=== PATIENT | male | born 1945 | race Two or more races ===

== ENCOUNTER → 2017-07-23 | Outpatient (CLI) | payer MEDICARE, OTHER ==
[~2017-07-23] MED LIST: BARIUM SULFATE 0.1% 450 ML BTL (VOLUMEN) PO ONE; IOHEXOL 100 ML ONE; IOHEXOL 350MG/ML 50 ML BTL ONE; SOD CHLORIDE 0.9% 100 ML ONE
[2017-07-23 09:44] LABS: CREATININE 0.73 mg/dl (0.61-1.24)
--- NOTE | 2017-07-24 11:14 | RADRPT ---
PROCEDURE: CT Abdomen and Pelvis. CLINICAL INDICATION: Pancreatic cyst. TECHNIQUE: Multiple contiguous axial CT images of the abdomen and pelvis were obtained prior to an d following the intravenous administration of 100 cc of Omnipaque 350. Contrast enhanced images were obtained during the arterial and venous phases. Coronal and sagittal reconstructions were also per formed. DICOM images are available. CTDIvol (mGy): 9.22, 12.62, 11.40; Total Exam DLP (mGy-cm): 1 198.71. One or more of the following dose reduction techniques were utilized: - Automated exposure control. - Adjustment of the mA and/or kV according to patient size. - Use of iterative reconstruction technique. COMPARISON: CT 06/04/2016; CT 12/20/2015; CT OUTSIDE STUDY 07/28/2015. FINDINGS: Limited imaging of the lower thorax is unremarkable. The liver is diffusely low in attenuation compatible with fatty infiltration. The density of the candido er is approximately 40 HU. There are two small hemangiomas within the right hepatic lobe, which are unchanged. The hepatic and portal veins are patent. The spleen, gallbladder and adrenal glands are u nremarkable. There is a small 2.4 cm cystic lesion within the uncinate process of the pancreas with internal dystrophic calcification, which is grossly unchanged in size previously measuring 2.2 cm. 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 The remainder o f the pancreas is unremarkable. There is no pancreatic gland atrophy or main duct dilatation. There is mild dilatation of the pancreatic duct within the uncinate process, which is unchanged. The kidneys are normal in size and enhancement. There is no hydronephrosis or abnormal perinephric i nflammation. There are no ureteral stones. The abdominal aorta is normal in caliber. Atherosclerotic calcification is present. There is no pa aortic / retroperitoneal lymphadenopathy. The stomach and small intestines are unremarkable. A large amount of stool seen throughout the colon . Surgical anastomoses are present within the rectosigmoid colon. There is no abnormality of the claudia gical bed. The appendix is not visualized. There are no focal inflammatory changes of the mesentery. There is no mesenteric lymphadenopathy. There is no ascites. Concentric bladder wall thickening is present. The prostate gland is enlarged measuring approximatel y 5.2 x 5.2 x 5.6 cm yielding a volume of 79 cc. The seminal vesicles are unremarkable. There is no free pelvic fluid. There is no pelvic sidewall or inguinal lymphadenopathy. Lumbosacral degenerative disk disease is present. Subcutaneous soft tissues are unremarkable. IMPRESSION: Stable small calcified cystic lesion of the uncinate process of the pancreas. Fatty infiltration of the liver with small hemangiomas, unchanged. No evidence of abdominopelvic lymphadenopathy or acute inflammatory pathology. Surgical changes of the distal colon. No abnormality of the surgical bed. Enlarged prostate with concentric bladder wall thickening suggesting sequelae of chronic bladder out let obstruction. RPTAT: AAQQ .Angie Iraheta MD, MD Date Time Electronically viewed and signed by .Angie Iraheta MD, MD on 07/24/2017 11:14 .T/
== END | disposition home or self-care (01) ==
LOC: LAB 08:56
PROVIDERS: ATTEND Transplant Surgery
DX: K86.9 Disease of pancreas, unspecified (principal)
CPT/HCPCS: 74178; 82565; 84520; Q9967

== ENCOUNTER 2017-07-31 10:56 | Outpatient (CLI) | payer MEDICARE, OTHER ==
[~2017-07-31] VITALS: Ht 172.7 cm; Wt 75.9 kg
[2017-07-31 11:10] VITALS: BP 98/53; PULSE 73; RESP 18; Ht 172.7 cm; Wt 75.9 kg
[2017-07-31] MEDS ORDERED: OMEG10006 PO (11:23)
[2017-07-31] MEDS ORDERED: METF1000 PO (11:23)
[2017-07-31] MEDS ORDERED: FLOV44 INHALATION (11:23)
[2017-07-31] MEDS ORDERED: FINA5TAB4 PO (11:23)
[2017-07-31] MEDS ORDERED: LINA5TAB PO (11:23)
[2017-07-31] MEDS ORDERED: FLUT16SP17 NASAL (11:23)
[2017-07-31] MEDS ORDERED: CHOL100062 PO (11:23)
[2017-07-31] MEDS ORDERED: OLME40TA14 PO (11:23)
[2017-07-31] MEDS ORDERED: ASPI-664 PO (11:23)
[2017-07-31] MEDS ORDERED: CLOP75TA27 PO (11:23)
[2017-07-31] MEDS ORDERED: AZEL137S9 NASAL (11:23)
[2017-07-31] MEDS ORDERED: ROSU5TAB5 PO (11:23)
--- NOTE | 2017-07-31 11:48 | PN ---
Date/Time of Note Date/Time of Note DATE: 07/31/17 TIME: 11:39 Assessment/Plan Assessment/Plan Assessment/Plan [facility] Outpatient Progress Note Date of Service: 07/31/2017 Today's Assessment & Plan: Overall stable and doing well. Repeat CT abd/pelvis px protocol 07/23/17 showed unchanged clinical picture. 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 In my opinion, patient can still be observed with perhaps longer interval and without exposing him to the risk of undergoing a Whipple procedure. I discussed this fully with patient (no family present with patient today) and answered all his questions to the best my ability. Patient appeared to understand and agreed with the plans. With above assessment, I've recommended the following for today: 1. Pancreas protocol CT early May 2019 2. Follow-up with us afterwards 3. Call me immediately if there is any clinical change in symptoms 4. Multidisciplinary tumor board presentation of overall current picture to review above recommendations Thank you again for your great care of this very pleasant young gentleman and his wonderful family. If there are any questions, please feel free to call me at [phone]. Nature of presenting problem: High Risk Complexity of Decision Making: High Complexity Disclaimer: Inadvertent spelling and grammatical errors are likely due to EHR/ dictation software use and do not reflect on the quality of delivered patient care. Also, please note that the electronic time recorded on this node does not necessarily reflect the actual time of the visit. 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 The size of this lesion was more than [address] images but was less than 2 cm according to endoscopic ultrasound findings. Patient had had vague and infrequent symptoms that could have potentially been explained by other reasons, but could have also been from this area. Pancreas parenchyma appeared to be normal and there was no obvious evidence of pancreatitis or pancreatic duct dilatation. Initially we considered Whipple procedure vs. watchful waiting with close follow up. Multidisciplinary tumor board presentation on 10/26/2015 resulted in recommendation for follow-up in 3 months with repeat endoscopic ultrasound with FNA as well as pancreas protocol CT or MRI. Endoscopic ultrasound on 03/02/2016 showed cystic lesion in the head of the pancreas 18 mm x 8 mm in maximal sectional diameter. Single compartment that was thinly septated. There was no associated mass. No internal debris. Normal pancreatic duct. No mural nodules. CEA levels were sent but unfortunately appear to have been lost. Cytology analysis showed groups of bland papillary cells and no high-grade dysplasia or overt malignancy identified. Size of this lesion is comparable to what was seen on 12/20/2015 CT and remains less than 2 cm. 2017 cardiac w/u showed 90-99% occlusion of mid LAD; no intervention, but placed him on ASA and plavix (no symptoms otherwise). CT scan abd/pelvis [facility] Dr. Angie Iraheta: Stable small calcified cystic lesion of the uncinate process of pancreas. Fatty infiltration of liver. Enlarged prostate. No significant change from CT from May 2016. Comorbidities: 1. Diabetes mellitus for more than a decade with hemoglobin A1c in the 5-6 range 2. Hyperlipidemia 3. Chronic constipation 4. History of stage I colon cancer status post resection years ago that was unfortunately complicated by what appears to be an anastomotic rupture 10-11 days after surgery requiring reoperation with placement of a diverting colostomy , status post colostomy takedown, and status post reexploration for bowel obstruction due to adhesions at [facility]. No chemotherapy. 5. GERD 6. Status post multiple colonoscopies in the past 7. Status post endoscopic ultrasound as mentioned above 8. Status post above-mentioned multiple operations (total of 5) Subjective: No major events or complaints; no abd pain; no n/v/d; no sob or cp; + flatus; + BM and normal; + activity Objective: Vitals: See below Exam: GENERAL: On exam, the patient was sitting up in a chair and appeared to be comfortable and in no acute distress. ABDOMEN: Soft, nontender and nondistended. There are no peritoneal signs or guarding. SKIN: Skin appears to be pink and feels warm to touch. NEUROLOGIC: Patient is awake, alert, and follows commands appropriately. Exam/Review of Systems Vital Signs Vitals Vital Signs Date Time Temp Pulse Resp B/P Pulse Ox O2 Delivery O2 Flow Rate FiO2 12/6/17 11:10 97.0 73 18 98/53 97 Room Air ERNIE CRAIG M.D. Jul 31, 2017 11:48
== END 2017-07-31 17:00 | disposition home or self-care (01) ==
LOC: HPC 10:56
PROVIDERS: ATTEND Transplant Surgery
DX: K86.2 Cyst of pancreas (principal); E11.9 Type 2 diabetes mellitus without complications; E78.5 Hyperlipidemia, unspecified; K59.09 Other constipation; Z85.038 Personal history of other malignant neoplasm of large intestine; K21.9 Gastro-esophageal reflux disease without esophagitis; Z79.82 Long term (current) use of aspirin; K76.0 Fatty (change of) liver, not elsewhere classified; N40.0 Benign prostatic hyperplasia without lower urinary tract symptoms
CPT/HCPCS: G0463